=== PATIENT | male | born 1960 | race African-American/Black ===

== ENCOUNTER 2025-01-04 00:23 | Inpatient (IN) | payer MEDICARE, OTHER ==
[~2025-01-04] VITALS: Ht 182.9 cm; Wt 87.1 kg
[2025-01-04 00:46] VITALS: BP 110/69; TEMP 98.4; O2SAT 94
[2025-01-04] MEDS ORDERED: ACETAMINOPHEN 325 MG TABLET PO PRN (01:15)
[2025-01-04] MEDS ORDERED: ONDANSETRON 4 MG/2 ML VIAL IV PRN (01:15)
[2025-01-04] MEDS ORDERED: HYDROCODONE/APAP 5-325MG TABLET PO PRN (01:15)
[2025-01-04 05:59] VITALS: BP 130/73; TEMP 98.3; O2SAT 98
[2025-01-04 07:03] LABS: BASOPHILS # (AUTO) 0.1 K/UL (0.0-0.2); EOSINOPHILS # (AUTO) 0.7 K/uL (0.0-0.7); EOSINOPHILS % (AUTO) 8.4 % (0.0-7.0); HEMATOCRIT 31.3 % (36.7-47.1); HEMOGLOBIN 10.4 g/dL (12.5-16.3); LYMPHOCYTES # (AUTO) 1.6 K/uL (0.8-4.8); LYMPHOCYTES % (AUTO) 18.7 % (20.5-51.5); MEAN CORPUSCULAR HEMOGLOBIN 28.2 uug (23.8-33.4); MEAN CORPUSCULAR HGB CONC 33 g/dL (32.5-36.3); MEAN CORPUSCULAR VOLUME 84.5 fL (73.0-96.2); MONOCYTES # (AUTO) 0.7 K/uL (0.1-1.30); NEUTROPHILS # (AUTO) 5.3 K/uL (1.8-8.9); NEUTROPHILS % (AUTO) 63.9 % (38.5-71.5); PLATELET COUNT (AUTO) 338 K/uL (152-348); RED CELL DISTRIBUTION WIDTH 15.6 % (12.1-16.2); WHITE BLOOD COUNT (AUTO) 8.3 K/uL (3.6-10.2)
[2025-01-04 07:07] LABS: DIFFERENTIAL COMMENT 1
[2025-01-04 07:14] LABS: ALANINE AMINOTRANSFERASE 39 U/L (16-63); ALKALINE PHOSPHATASE 126 U/L (50-136); ASPARTATE AMINOTRANSFERASE 13 U/L (15-37); BILIRUBIN,TOTAL 0.3 mg/dL (0.2-1.0); CALCIUM 8.6 mg/dL (8.5-10.1); CARBON DIOXIDE 28 mmol/L (21-32); CHLORIDE 108 mmol/L (98-107); CHOLESTEROL 98 mg/dL (<200); CREATININE 0.6 mg/dL (0.6-1.3); GLUCOSE 93 mg/dL (74-106); HDL CHOLESTEROL 38 mg/dL (40-60); MAGNESIUM 1.7 mg/dL (1.8-2.4); PHOSPHOROUS 3.3 mg/dL (2.5-4.9); POTASSIUM 3.6 mmol/L (3.5-5.1); SODIUM SERUM 143 mmol/L (136-145); TOTAL PROTEIN, SERUM 6.8 g/dL (6.4-8.2); TRIGLYCERIDES 38 MG/DL (30-150); UREA NITROGEN, BLOOD 10 mg/dL (7-18)
[2025-01-04 07:29] VITALS: BP 126/71; TEMP 98; O2SAT 92
[2025-01-04] MEDS ORDERED: AMLO-212 PO (07:52)
[2025-01-04] MEDS ORDERED: PANT40TA49 PO (07:52)
[2025-01-04] MEDS ORDERED: FERR220S6 PO (07:52)
[2025-01-04] MEDS ORDERED: FOLI0.8T3 PO (07:52)
[2025-01-04] MEDS ORDERED: CEPH500T PO (07:52)
[2025-01-04] MEDS ORDERED: LEVO500T90 PO (07:52)
[2025-01-04] MEDS: PANTOPRAZOLE SODIUM 40 MG TABLET.DR PO SCH (08:08)
[2025-01-04 08:33] LABS: THYROID STIMULATING HORMONE 2.387 mIU/mL (0.358-3.740)
[2025-01-04] MEDS: MAGNESIUM OXIDE 400 MG TABLET PO ONE (10:08)
[2025-01-04 11:01] VITALS: BP 117/64; TEMP 98.4; O2SAT 97
[2025-01-04 12:10] VITALS: BP 108/67; TEMP 98.7; O2SAT 95
[2025-01-04] MEDS ORDERED: CETI10TA14 PO (12:45)
[2025-01-04] MEDS ORDERED: ATOR80TA PO (12:45)
[2025-01-04] MEDS: ASPIRIN 81 MG TAB.CHEW PO SCH (12:52)
[2025-01-04 15:13] VITALS: BP 108/70; TEMP 98.4; O2SAT 97
[2025-01-04] MEDS: AMLODIPINE 10 MG TABLET PO SCH (17:03)
[2025-01-04] MEDS: ATORVASTATIN 20 MG TABLET PO SCH (20:38)
[2025-01-04] MEDS: TEMAZEPAM 15 MG CAPSULE PO SCH (20:39)
[2025-01-04] MEDS: ENOXAPARIN SODIUM 40 MG/0.4 ML DISP.SYRIN SQ SCH (20:41)
[2025-01-04] MEDS ORDERED: AMLODIPINE 5 MG TABLET PO SCH (21:00)
[2025-01-05] VITALS (7 sets, daily range): BP systolic 110–133; BP diastolic 47–78; TEMP 97.6–98.8; O2SAT 93–100
[2025-01-05] MEDS: PANTOPRAZOLE SODIUM 40 MG TABLET.DR PO SCH (06:31)
[2025-01-05 07:01] LABS: CALCIUM 8.8 mg/dL (8.5-10.1); CREATININE 0.8 mg/dL (0.6-1.3); POTASSIUM 3.9 mmol/L (3.5-5.1)
[2025-01-05] MEDS ORDERED: FOLIC ACID 0.8 MG PO SCH (09:00)
[2025-01-05] MEDS ORDERED: PANTOPRAZOLE SODIUM 40 MG TABLET.DR PO SCH (09:00)
[2025-01-05] MEDS: FOLIC ACID 1 MG TABLET PO SCH (09:05)
[2025-01-05] MEDS ORDERED: IOHEXOL 350 100 ML INFUS..BTL ONE (11:36)
[2025-01-05] MEDS ORDERED: IV NORMAL SALINE 250 ML IV ONE (11:36)
[2025-01-05] MEDS ORDERED: SWABABLE VALVE TRANSFER SET EA MC ONE (11:36)
[2025-01-05 21:19] LABS: *BILIRUBIN,URIN NEGATIVE (NEGATIVE); *BLOOD, URINE NEGATIVE (NEGATIVE); *CLARITY,URINE CLEAR (CLEAR); *COLOR,URINE YELLOW (YELLOW); *KETONES,URINE NEGATIVE (NEGATIVE); *PROTEIN,URINE NEGATIVE (NEGATIVE); *UROBILINOGEN,URINE 0.2 E.U./dl (NORMAL); LEUKOCYTE ESTERASE ,URINE NEGATIVE (NEGATIVE); NITRITE, URINE NEGATIVE (NEGATIVE); UGLUCOSE NEGATIVE (NEGATIVE)
[2025-01-06 05:00] VITALS: BP 121/74; TEMP 98.4; O2SAT 98
[2025-01-06 05:01] VITALS: BP 126/76; TEMP 98.4; O2SAT 98
[2025-01-06 07:33] VITALS: BP 123/75; TEMP 99; O2SAT 99
[2025-01-06] MEDS: CLOPIDOGREL 75 MG TABLET GT SCH (09:30)
[2025-01-06 11:35] VITALS: BP 114/67; TEMP 98.1; O2SAT 99
[2025-01-06] MEDS ORDERED: CLOP75TA15 PO (14:23)
[2025-01-06 15:31] VITALS: BP 126/75; TEMP 98.3; O2SAT 97
[2025-01-06 17:18] VITALS: BP 122/79
== END 2025-01-06 17:38 | disposition home health service (06) | DRG 69 ==
LOC: TELE3 00:23
PROVIDERS: ADMIT Internal Medicine; ATTEND Nurse Practitioner Acute Care
DX: G45.9 Transient cerebral ischemic attack, unspecified (principal); I69.351 Hemiplegia and hemiparesis following cerebral infarction affecting right dominant side; E44.1 Mild protein-calorie malnutrition; Z87.19 Personal history of other diseases of the digestive system; R41.82 Altered mental status, unspecified; I69.328 Other speech and language deficits following cerebral infarction; Z79.899 Other long term (current) drug therapy; Z95.828 Presence of other vascular implants and grafts; E88.09 Other disorders of plasma-protein metabolism, not elsewhere classified; J45.909 Unspecified asthma, uncomplicated; D64.9 Anemia, unspecified; I10 Essential (primary) hypertension; Z98.890 Other specified postprocedural states
CPT/HCPCS: 36415; 70450; 70496; 83735; 84100; 84443; 84484; 85025; 93307; A4663; G0378; J1650; Q9967